=== PATIENT | female | born 1960 | race Caucasian/White ===

== ENCOUNTER → 2020-07-16 17:10 | Outpatient (CLI) | payer MEDICAID, SELFPAY ==
--- NOTE | 2020-07-16 17:16 | MRI_ITS ---
STUDY: MRI LEFT SHOULDER REASON FOR EXAM: Female, 59 years old. CHRONIC PAIN TECHNIQUE: Standardized fat and water weighted pulse sequences were obtained in all 3 orthogonal planes. COMPARISON: None. FINDINGS: This study is incomplete. Sagittal T2 fat-saturated images were not obtained. Interstitial tear of supraspinatus tendon is seen, involving less than 50% of tendon thickness. There is partial thickness tear of the subscapularis tendon with the proximal long head of the biceps tendon is subluxed medially. Teres minor and infraspinatus tendons are intact. The glenoid labrum is grossly unremarkable on this nonarthrographic study. There are minimal to mild degenerative and proliferative changes of the acromioclavicular joint with synovitis. No subacromial spur or os acromiale is seen. No significant glenohumeral joint effusion is noted. There are multifocal superficial partial thickness cartilage defects overlying the humeral head and glenoid. Bone marrow signal intensity is intact. Muscle signal is unremarkable with no significant edema or atrophy. MRI/Upper Ext Joint Only(Routine) IMPRESSION: Partial-thickness rotator cuff tears. 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 Electronically Signed: Blanco Powell MD at 1:34 EDT Tel , Service support ,
== END ==
PROVIDERS: PCP Family Medicine; Referring Provider Family Medicine; Visit Provider Family Medicine
DX: M75.112 Incomplete rotator cuff tear or rupture of left shoulder, not specified as traumatic (principal); M19.012 Primary osteoarthritis, left shoulder; G89.29 Other chronic pain
CPT/HCPCS: 73221